=== PATIENT | female | born 1990 | race Caucasian/White ===

== ENCOUNTER 2018-02-26 18:31 | Emergency (ER) | payer SELFPAY ==
[~2018-02-26] VITALS: Wt 44.2 kg
[2018-02-26 18:54] VITALS: BP 118/73; PULSE 107; RESP 20
[2018-02-26] MEDS ORDERED: IBUPROFEN 200 MG TAB PO ONE (21:00)
[2018-02-26] MEDS ORDERED: IBUP-1561 PO (21:04)
[2018-02-26] MEDS ORDERED: CYCL10TA7 PO (21:04)
[2018-02-26] MEDS ORDERED: ACET500C5 PO (21:05)
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
== END 2018-02-26 21:45 | disposition home or self-care (01) ==
LOC: FTE 18:31
DX: S13.4XXA Sprain of ligaments of cervical spine, initial encounter (principal); S39.92XA Unspecified injury of lower back, initial encounter; V49.49XA Driver injured in collision with other motor vehicles in traffic accident, initial encounter